=== PATIENT | female | born 1995 | race African-American/Black ===

== ENCOUNTER 2019-02-28 14:34 | Emergency (ER) | payer OTHER ==
--- NOTE | 2019-02-28 16:26 | ED ---
GI/ HPI - HPI Summary HPI Summary: 23-year-old female with no significant past medical history presents to the emergency department today complaining of vaginal burning and a possible yeast infection. Patient states 5 days ago she began using a new feminine wash and she believes this is causing an allergic reaction. She believes she has a chemical burn on her labia which is made worse with urination and walking. Patient has not taken anything for pain prior to arrival. Patient denies fever , chest pain, shortness of breath, abdominal pain, vaginal discharge, vaginal bleeding. Family history and surgical history noncontributory. - History of Current Complaint Chief Complaint: EDGeneral Time Seen by Provider: 02/28/19 16:16 Stated Complaint: ALLERGIC REACTION PER PT Hx Obtained From: Patient Hx Last Menstrual Period: 01/15/14 Onset/Duration: Started Days Ago Timing: Constant Severity: Moderate Current Severity: Moderate Pain Intensity: 6 Additional Location for Females: Vulva Pain Characteristics: Burning Additional Signs & Symptoms: Positive: Vaginal Discharge. Negative: Genital Swelling, Vaginal Bleeding, Positive Test - Allergy/Home Medications Allergies/Adverse Reactions: Allergies Allergy/AdvReac Type Severity Reaction Status Date / Time seasonal Allergy Congestion Uncoded 10/04/13 18:20 PMH/Surg Hx/FS Hx/Imm Hx Respiratory History: Reports: Hx Asthma - Surgical History Surgery Procedure, Year, and Place: left axilla fissue/boil 11/2013 Infectious Disease History: No Infectious Disease History: Denies: Traveled Outside the [place] in Last 30 Days - Social History Alcohol Use: None Substance Use Type: Reports: None Smoking Status (MU): Never Smoked Tobacco Review of Systems Constitutional: Negative Eyes: Negative ENT: Negative Cardiovascular: Negative Respiratory: Negative Gastrointestinal: Negative Genitourinary: Negative Musculoskeletal: Negative Skin: Negative Neurological: Negative Psychological: Normal All Other Systems Reviewed And Are Negative: Yes Physical Exam - Summary Physical Exam Summary: Inspection of the external genitalia shows 1 cm ulcer to the right labia as well as 2 smaller ulcerations to the inferior right labia. These lesions are consistent with chemical burn do not appear herpetic. There is copious thick white discharge in the vaginal canal. There are no lesions or lacerations the vaginal wall. Cervix is non-erythematous. No cervical motion tenderness. Pelvic examination swabs for gonorrhea and chlamydia as well as bacterial vaginosis, trichomoniasis, Chris were obtained. Pelvic exam was chaperoned by hospital aide Triage Information Reviewed: Yes Vital Signs On Initial Exam: Initial Vitals Temp Pulse Resp BP Pulse Ox 97.8 F 78 18 122/71 100 02/28/19 14:47 02/28/19 14:47 02/28/19 14:47 02/28/19 14:47 02/28/19 14:47 Vital Signs Reviewed: Yes Appearance: Positive: Well-Appearing, No Pain Distress, Well-Nourished Skin: Positive: Warm, Skin Color Reflects Adequate Perfusion Procedures - Sedation Patient Received Moderate/Deep Sedation with Procedure: No Diagnostics - Vital Signs Vital Signs Temp Pulse Resp BP Pulse Ox 02/28/19 14:47 97.8 F 78 18 122/71 100 - Laboratory Lab Statement: Any lab studies that have been ordered have been reviewed, and results considered in the medical decision making process. GIGU Course/Dx - Course Course Of Treatment: pt evaluated for vaginal pain. vitals noted. pelvic exam done with cultures sent for BV/trich/chris + GC/ chlam. Exam reveals evidence of bacterial vaginosis. Pt desired oral treatment with metronidazole and was told to not consume alcohol while taking this abx. Pt dischagred and told to f/ u with OBGYN. - Diagnoses Differential Diagnoses - Female: Cervicitis, STD, Vaginitis Provider Diagnoses: Vaginosis Discharge ED - Sign-Out/Discharge Documenting (check all that apply): Patient Departure - Discharge Plan Condition: Stable Disposition: HOME Prescriptions: metroNIDAZOLE * [Flagyl] 500 mg PO BID #14 tablet metroNIDAZOLE * [Flagyl] 500 mg PO BID #14 tablet Patient Education Materials: Bacterial Vaginosis (ED) Referrals: Edy Dangelo DO [Primary Care Provider] - Josue Noland JR, DO [Doctor of Osteopathy] - 7 Days Additional Instructions: You were seen in the emergency department today for bacterial vaginosis. This is a common bacterial infection of the vagina which occurs when vaginal pH is disturbed. You may treat this with metronidazole, an antibiotic which I have sent to your pharmacy. Please take this twice daily for 7 days and be sure not to drink any alcohol. Please follow-up with your [facility] in 7 days if you continue to have symptoms. Please return to the emergency department immediately if you develop any new or worsening symptoms. - Billing Disposition and Condition Condition: STABLE Disposition: Home - Attestation Statements Provider Attestation: I was available for consultation for this patient. I did not evaluate the patient or participate in any medical decision making or disposition decisions unless I am specifically named in the chart as having consulted on the patient. If I have consulted on the patient, please see my own ED note on the patient encounter. Nicole Lr MD
[2019-02-28 17:23] VITALS: BP 128/70
[2019-03-01 14:08] LABS: Chlamydia trachomatis NAA Negative (Negative); Neisseria gonorrhoeae (GC) NAA Negative (Negative)
== END 2019-02-28 17:15 | disposition home or self-care (01) ==
LOC: ED 14:34
DX: N76.0 Acute vaginitis (principal); N76.6 Ulceration of vulva
CPT/HCPCS: 87480; 87491; 87510; 87591; 87661; 99282